=== PATIENT | female | born 1950 | race Caucasian/White ===

== ENCOUNTER 2019-01-19 05:41 | Inpatient (IN) ==
[2019-01-19] MEDS ORDERED: ROBAXIN PO ONE (06:36)
--- NOTE | 2019-01-19 06:42 | PROVIDER DOCUMENTATION ---
HPI-General Adult - General Chief Complaint: Extremity Pain Stated Complaint: leg pain Time Seen by Provider: 01/19/19 06:29 Source: patient Home Medications: Home Medication List Medication Instructions Recorded Confirmed Last Taken Type Albuterol Sulfate [Proair Hfa] 8.5 gm INHALATION DAILY 01/19/19 01/19/19 Unknown History Amlodipine [Norvasc] 10 mg PO DAILY 01/19/19 01/19/19 Unknown History Brexpiprazole [Rexulti] 2 mg PO DAILY 01/19/19 01/19/19 Unknown History Bupropion HCl [Budeprion Xl] 300 mg PO DAILY 01/19/19 01/19/19 Unknown History Dextroamphetamine/Amphetamine 30 mg PO DAILY 01/19/19 01/19/19 Unknown History [Adderall Xr 30 mg Capsule] Fenofibrate 160 mg PO DAILY 01/19/19 01/19/19 Unknown History Ferrous Sulfate 325 mg PO DAILY 01/19/19 01/19/19 Unknown History Fluoxetine [Prozac] 40 mg PO DAILY 01/19/19 01/19/19 Unknown History Gabapentin 400 mg PO DAILY 01/19/19 01/19/19 Unknown History Hydrocodone/APAP 10 mg/325 mg 1 ea PO Q6H PRN PRN 01/19/19 01/19/19 Unknown History [[place]-10] Ipratropium/Albuterol INH 1 puff INH RTQ6H 01/19/19 01/19/19 Unknown History [Combivent Respimat Inhaler] Liraglutide [Victoza] 18 mg .SEE ORDER DAILY 01/19/19 01/19/19 Unknown History Losartan [Cozaar] 50 mg PO DAILY 01/19/19 01/19/19 Unknown History Omeprazole 40 mg PO DAILY 01/19/19 01/19/19 Unknown History PRAVAstatin [Pravachol] 40 mg PO DAILY 01/19/19 01/19/19 Unknown History Potassium Chloride 10 meq PO DAILY 01/19/19 01/19/19 Unknown History Ropinirole [Requip] 0.5 mg PO HS 01/19/19 01/19/19 Unknown History Sitagliptin Phosphate [Januvia] 100 mg PO DAILY 01/19/19 01/19/19 Unknown History - History of Present Illness -Gen Adult Nature of Presenting Problems: Pt presents with left leg pain, x 3 months, pt had knee replacement on right knee that keeps dislocating, pt was told by ortho to start favoring her left leg, since she has been doing that she developed left leg pain, gets muscle s pasms, pain is sharp to cramp, no radiation, inner thigh and lower leg, pt denies f/c, holt, cp, sob, cough, ap, n/v/d. Pt is lying in bed in no acute distress. Location of Pain/Injury: reports: lower extremity (left leg) Pain Radiation: reports: no radiation Quality of Pain: reports: cramping, sharp Onset/Duration: reports: other (3 months) Timing: reports: still present Context/Activities at Onset: reports: none Modifying Factors: improves with: nothing Associated Symptoms: reports: denies symptoms Similar Symptoms Previously?: Yes Recently seen or treated by another doctor?: No Review of Systems - Adult - REVIEW OF SYSTEMS - ADULT Constitutional: reports: no symptoms reported Eyes: reports: no symptoms reported Ears, Nose, Mouth & Throat: reports: no symptoms reported Cardiovascular: reports: no symptoms reported Respiratory: reports: no symptoms reported Gastrointestinal: reports: no symptoms reported Genitourinary: reports: no symptoms reported Musculoskeletal: reports: see HPI Integumentary: reports: no symptoms reported Neurological: reports: no symptoms reported Psychiatric: reports: no symptoms reported Endocrine: reports: no symptoms reported Hematologic/Lymphatic: reports: no symptoms reported Allergic/Immunologic: reports: no symptoms reported All Other Systems: Reviewed and Negative Past History - Adult - PAST MEDICAL HISTORY-ADULT Review of Records: reports: Old Records Reviewed, Nursing Assessment Review, Medications Reviewed, Social history reviewed & non-contributory. Major Childhood Illnesses: reports: denies history Cardiovascular: reports: denies history Respiratory: reports: denies history Gastrointestinal: reports: denies history Obstetrical/Gynecological: reports: denies history Genitourinary: reports: denies history Musculoskeletal: reports: other (right knee replacement) Neurological: reports: denies history Psychiatric: reports: denies history Endocrine/Immune: reports: denies history Physical Exam-General - PHYSICAL EXAM-ADULT Initial Vital Signs Reviewed: Yes - CONSTITUTIONAL General Appearance: appears well - EYES Eyes: PERRL/EOMI - HEAD, EARS, NOSE, MOUTH & THROAT HENMT: normal ENT inspection - NECK Neck: normal inspection - RESPIRATORY Respiratory: no respiratory distress, no accessory muscle use - CARDIOVASCULAR Cardiovascular: regular rate, rhythm - GASTROINTESTINAL (ABDOMEN) Abdominal Exam: non tender, soft - LYMPHATIC Lymphatic: no adenopathy - MUSCULOSKELETAL Back Exam: normal inspection Extremity: normal range of motion, non-tender, normal gait, no calf tenderness - SKIN Integumentary: normal color - NEUROLOGIC Neurologic: financial aid manager II-XII nml as tested - PSYCHIATRIC Psych/Mental Status: normal mood/affect Progress - PLAN OF CARE/RESULTS Progress/Plan/Lab Results: Vital Signs - 8 hr 01/19/19 06:28 Temperature 98.7 F Pulse Rate 96 H Respiratory Rate 18 Blood Pressure 160/88 O2 Sat by Pulse Oximetry 98 Orders Category Date Time Status CBC WITH ELECTRONIC DIFF [HEME] Stat Lab 01/19/19 06:37 Uncollected CK TOTAL [CHEM] Stat Lab 01/19/19 06:37 Uncollected COMPREHENSIVE METABOLIC PANEL [CHEM] Stat Lab 01/19/19 06:37 Uncollected CRP [C REACTIVE PROT QUANT] [CHEM] Stat Lab 01/19/19 06:37 Uncollected SED RATE [HEME] Stat Lab 01/19/19 06:37 Uncollected Methocarbamol [Robaxin] Med 01/19/19 06:36 Once 750 mg PO NOW ONE Result Diagrams: 01/19/19 07:12 01/19/19 07:12 - REASSESSMENT Reassessment #1 Time Reassessed: 09:30 Status: unchanged (Assumed care from Dr. Walden with disposition pending labs. Leukocytosis noted. Further discussion with the patient, she has been feeling weak with productice cough. CXR pending) - XRAY 1 XRAY Study: Chest (infiltrates) Departure - Departure Date of Disposition Decision: 01/19/19 Time of Disposition Decision: 10:27 DIAGNOSIS: Pneumonia Disposition: ADMITTED INPATIENT 09 Certified Medical Emergency: Emergent Condition: Serious Referrals and Follow-Ups: Shlomo Ovalle MD [Primary Care Provider] - - Critical Care Note This patient required my direct & personal management of CC.: Yes Total Time (mins): 35 Critical Care Statement: This patient required my direct personal management to treat or rule out processes, the absence of which, could potentiallly result in sudden, clinically significant life or limb threatening deterioration. Attestation - Physician/ DUANE Attestation The physician spent face to face time with patient:: Yes Advanced Practice Provider documentation review:: Supervising physician onsite and consulted in the evaluation and care of this patient. The physician did have a face to face encounter with the patient.
[2019-01-19 07:38] LABS: BASO# 0.02 X1000 (0.0-0.2); BASO% 0.1 % (0.0-0.8); EOS# 0.03 X1000 (0.0-0.7); EOS% 0.1 % (0.0-10.0); HEMATOCRIT 35.9 % (37.0-47.0); HEMOGLOBIN 11.8 g/dL (12.0-16.0); IMM GRAN# 0.06 X1000 (0.0-0.04); IMM GRAN% 0.3 % (0.0-0.5); LYMPH# 0.66 X1000 (1.2-3.4); MCH 26.2 PG (27-31); MCHC 32.9 g/dL (33-37); MCV 79.8 FL (81-99); MONO# 1.18 X1000 (0.11-0.59); MONO% 5.4 % (1.7-9.3); MPV 10.4 FL (7.4-10.4); NEUT# 19.86 X1000 (1.4-6.5); NEUT% 91.1 % (42.2-75.2); PLT 344 X1000 (130-400); RDW 14.2 % (11.5-14.5); WBC 21.81 X1000 (4.8-10.8)
[2019-01-19 07:54] LABS: ALB/GLOB RATIO 1.1; ALBUMIN 3.8 g/dL (3.5-5.0); C REACTIVE PROT QUANT 55.44 mg/L (0.00-5.00); CALCIUM 9.2 mg/dL (8.8-10.2); CREATININE 1.5 mg/dL (0.5-0.9); POTASSIUM 4.5 mmol/L (3.5-5.1); TOTAL BILIRUBIN 0.35 mg/dL (0.20-1.00); TOTAL PROTEIN 7.4 g/dL (6.3-8.3)
[2019-01-19 08:41] LABS: SED RATE 40 mm/hr (0-20)
--- NOTE | 2019-01-19 09:45 | Diag Imaging Result Doc PS360 ---
EXAM: CHEST-2 VIEWS HISTORY: short of breath TECHNIQUE: Two views COMPARISON: None. FINDINGS: The lungs are well expanded. The heart is not enlarged. The vessels are not distended. There are posterior infiltrates on the later view. No pleural effusions. IMPRESSION: Small base infiltrates. Electronically signed by Cruz Mason 01/19/2019 9:42 AM
[2019-01-19 10:02] LABS: URINE SOURCE CLEAN CATCH
[2019-01-19 10:15] LABS: BILIRUBIN URINE NEGATIVE (NEGATIVE); BLOOD URINE SMALL (NEGATIVE); COLOR YELLOW; GLUCOSE URINE NEGATIVE (NEGATIVE); KETONE URINE NEGATIVE (NEGATIVE); LEUKOCYTES URINE LARGE (NEGATIVE); NITRITE URINE NEGATIVE (NEGATIVE); PROTEIN URINE 300 mg/dL (NEGATIVE); SP GRAVITY URINE 1.017; TURBIDITY URINE HAZY (CLEAR); UROBILINOGEN URINE NORMAL (NORMAL)
[2019-01-19 10:17] LABS: UR EPITHELIAL CELLS <10 /HPF (<10); URINE BACTERIA 4+ /HPF; URINE RBC <10 /HPF (<10); URINE WBC TNTC /HPF (<10)
[2019-01-19 10:22] LABS: INR 1.04; PROTIME 14.5 Seconds (11.0-16.0)
[2019-01-19] MEDS ORDERED: ZITHROMAX 500 MG/NS 500 MG/250 ML IVPB IV ONE (10:24)
[2019-01-19] MEDS ORDERED: ROCEPHIN 2 GM in NS 50 ML IV ONE (10:24)
[2019-01-19] MEDS ORDERED: NS 1,000 ML IV ONE (10:52)
[2019-01-19] MEDS ORDERED: NS 1,000 ML ONE (10:55)
[2019-01-19] MEDS ORDERED: VANCOMYCIN 1 GM/NS 1 GM/250 ML IVPB IV ONE (10:55)
[2019-01-19] MEDS ORDERED: ROCEPHIN 1 GM in NS 50 ML IV SCH (11:15)
[2019-01-19] MEDS ORDERED: VENTOLIN HFA INH PRN (14:32)
--- NOTE | 2019-01-19 15:40 | HISTORY AND PHYSICAL ---
CHIEF COMPLAINT: Left knee pain. HISTORY OF PRESENT ILLNESS: This is a morbidly obese 68-year-old female who presents to the emergency room complaining of 3 months of left knee and leg pain. The patient states that she is status post a right knee replacement. She states "my new right knee keeps dislocating so my orthopedic doctor told me to start putting my weight on my left leg instead of my right," she describes this pain as a cramping type pain is intermittent, she can find no alleviating factors. walking and weight bearing are exacerbating factors. No accompanying factors. Labs were drawn. She was found to have white count of 21, chest x-ray revealed bibasilar pneumonia. Blood cultures were drawn. She was given antibiotics of Rocephin and azithromycin and she is being admitted for further evaluation and treatment. PAST MEDICAL HISTORY: Hypertension, COPD, anemia of chronic disease, diabetes mellitus, chronic kidney disease. PAST SURGICAL HISTORY: Cholecystectomy, , tubal ligation, tunneled catheter placed and removed. SOCIAL HISTORY: She smoked. She quit a few years ago. She denies alcohol or illicit drug use. ALLERGIES: They only had Bactrim on file. We did review the antibiotics that she had being given in the last year and a half. She had been given Levaquin, Cipro, clindamycin, gentamicin IM. She states that she feels the Levaquin, Cipro and clindamycin cause blisters on her hands. She did remember taking Zithromax and a Z-Rakesh and doing fine. She received Keflex in July 2018, twice in August 2018 and once in September 2018, she stated that she took this without difficulty. HOME MEDICATIONS: A list will be obtained by the nursing staff and once verified will review and restarted as appropriate. REVIEW OF SYSTEMS: Discussed with the patient with pertinent positives stated in the HPI. She denied any syncope, any dizziness, any chest pain or palpitations, any nausea, vomiting, diarrhea, constipation, any black or bloody vomitus or stools, any hematuria, dysuria, frequency, urgency. PHYSICAL EXAMINATION: GENERAL: This is a 68-year-old female who is lying in the bed in no distress. VITAL SIGNS: Blood pressure is 145/86 with heart rate of 86, respirations are 20, temperature is 98.9 degrees with O2 saturations that are 86 to 87 on room air, 91 to 93 on 2 L nasal cannula. HEENT: Pupils are equal, round, react to light. EOMs are intact. Sclerae anicteric. Head is normocephalic, atraumatic. Mucous membranes are moist. NECK: Supple. Trachea midline. CARDIOVASCULAR: Regular rate and rhythm. S1 and S2 appreciated. Calves are nontender bilateral with peripheral pulses palpable. PULMONARY: Breath sounds are diminished in the bases. Chest rises and fall symmetric respiration. Chest wall is nontender to palpation. GASTROINTESTINAL: Abdomen large, soft, nontender, nondistended with bowel sounds in all 4 quadrants. NEUROLOGIC: She is alert and oriented x3. SKIN: Warm and dry. LABS: WBC is 21 with hemoglobin 11.8, hematocrit 35.9, platelets of 344,000. INR is 1.04. Sodium 135, potassium 4.5, BUN 17, creatinine 1.5 with a glucose of 248. Troponin is negative. Her lactate is 1.1. Urinalysis reveals a small amount of blood, large leukocytes and large white blood cells with 4+ bacteria. Chest x-ray revealed small basilar infiltrates. ASSESSMENT AND PLAN: 1. Bibasilar pneumonia. Blood cultures were drawn in the emergency room. We will use antibiotic coverage of azithromycin and Rocephin. Start incentive spirometer. 2. Hypoxemia. Will give supplemental oxygen and monitor saturations. 3. Diabetes mellitus. She will be placed on pattern blood glucose with sliding scale insulin. 4. Chronic kidney disease. Creatinine is 1.5. She did state that in the past she had some chronic kidney disease and she saw a "kidney doctor but she cannot remember where he was or if he was was in [place] or in [place]. .She states that she almost went on dialysis but "I got up to 18 so I didnt have to do it." She does not know what level was 18. Will trend her labs and renal dose medications. 5. Leukocytosis most likely secondary to pneumonia. 6. Influenza A positive. Will start Tamiflu. 7. Possible urinary tract infection. Will continue antibiotics as stated above and once urine culture other antibiotics will be culture driven. 8. Left knee pain. We will continue her [place] 10 as from home. 9. For DVT prophylaxis will use Lovenox at a renal dose and for GI prophylaxis PPI. Further treatments pending hospital course. Dictated by FREDO Pritchett for Ronni Nevarez MD cc: FREDO Pritchett MD I agree with most components of history, physical, assessment and plan. A separate addendum has been dictated. MTDD
[2019-01-19] MEDS ORDERED: ZITHROMAX PO SCH (15:45)
[2019-01-19] MEDS ORDERED: NS 1,000 ML IV SCH (16:00)
--- NOTE | 2019-01-19 16:16 | Diag Imaging Result Doc PS360 ---
EXAM: KNEE 1-2 VIEWS-LEFT HISTORY: Eval for fracture, osteoarthritis TECHNIQUE: Left knee, two views COMPARISON: None. FINDINGS: Prominent joint space narrowing. There are large bone spurs arising from the femoral condyles and tibial plateau as well as the patella. No fracture or dislocation. Mild atherosclerosis. IMPRESSION: Severe arthritis Electronically signed by Cruz Mason 01/19/2019 4:13 PM
--- NOTE | 2019-01-19 16:19 | HISTORY AND PHYSICAL ---
ADDENDUM: I agree with most components of history and physical. In brief Ms. Schumacher is 68 years old lady with past medical history of tobacco abuse quit about 5 years ago, COPD, essential hypertension, chronic anemia, chronic kidney disease, [id number] diabetes mellitus, who comes in with chief complaints of shortness of breath since about 1 week with increased cough with greenish expectoration since last about 5 days. The patient also had left knee pain which was progressively getting worse over last 1 month. The patient is a poor historian. While in the emergency room she was found to have leukocytosis, hypoxia and chest x- ray suggestive of bibasilar pneumonia so the hospitalist team was consulted. Apparently patient did not receive antibiotics in the emergency room since she was listed to be allergic to multiple medications. At the time of my evaluation patient states she never had anaphylactic reaction to penicillin and she had previously tolerated Keflex well. She currently denies any chest pain but is complaining of shortness of breath with cough and expectoration. We discussed about clinical exam finding, labs, imaging, assessment and plan, answered all of her questions. Her code status is full. She is denying any fevers or chills however she states she has always been feeling chilly. Currently vitals suggest temperature of 99.1 degrees, pulse of 88 per minute, blood pressure of 137/81, saturating 92% on 2 L nasal cannula. PHYSICAL EXAMINATION: Morbidly obese not in any acute distress. Oral cavity is moist. Air entry bilaterally equal. No wheeze or rhonchi. She does have bronchial breath sound on right infrascapular region. S1, S2 normal. No murmur, rub, or gallop. Abdomen is obese, soft, nontender. She has mild bilateral lower extremity edema. LABS: Suggestive of leukocytosis, microcytic anemia, normal platelet count, hyponatremia, kidney dysfunction, suspected chronic kidney disease stage 3. Microbiology, influenza screen was positive for influenza type A. ASSESSMENT AND PLAN: 1. Acute hypoxic respiratory failure. 2. Acute chronic obstructive pulmonary disease exacerbation. 3. Bilateral lower lobe pneumonia leading to sepsis. 4. Left knee pain with history of right knee arthroplasty. 5. Influenza type A. 6. Tzj-mebvouv-qjvzeupsg diabetes mellitus, chronic kidney disease. 7. Chronic anemia. PLAN: I will start patient on intravenous cefepime and linezolid to broadly cover for bilateral pneumonia, acute chronic obstructive pulmonary disease exacerbation, since she is not wheezing I am holding off on adding steroids. I will get urine Legionella and streptococcal antigen, sputum culture and sensitivity as well as blood culture. I will also get left knee x-ray. I will start patient on Tamiflu renally dosed. Plan of care is discussed with the patient. All of her questions have been answered. cc: Ronni Nevarez MD
[2019-01-19] MEDS: HUMALOG SUBQ SCH ×2 (16:35→22:16)
[2019-01-19] MEDS: NON-FORMULARY MED PO SCH ×2 (17:45→22:16)
[2019-01-19] MEDS: MAXIPIME 1 GM in NS 50 ML IV SCH (17:45)
[2019-01-19] MEDS: ZYVOX PO SCH ×2 (17:45→22:16)
[2019-01-19] MEDS: NORVASC PO SCH (17:46)
[2019-01-19] MEDS: REQUIP PO SCH (22:14)
[2019-01-19] MEDS: DUONEB (A & A) INH PRN (22:38)
[2019-01-20] MEDS: MAXIPIME 1 GM in NS 50 ML IV SCH ×2 (04:32→18:58)
[2019-01-20] MEDS: NORCO-10 PO PRN ×2 (04:32→12:33)
[2019-01-20] MEDS: HUMALOG SUBQ SCH ×4 (06:05→21:48)
[2019-01-20] MEDS: PRILOSEC PO SCH (06:37)
[2019-01-20] MEDS: LOVENOX SUBQ SCH (06:37)
[2019-01-20 07:12] LABS: BASO# 0.03 X1000 (0.0-0.2); BASO% 0.2 % (0.0-0.8); EOS# 0.03 X1000 (0.0-0.7); EOS% 0.2 % (0.0-10.0); HEMATOCRIT 33.3 % (37.0-47.0); HEMOGLOBIN 10.8 g/dL (12.0-16.0); IMM GRAN# 0.04 X1000 (0.0-0.04); IMM GRAN% 0.2 % (0.0-0.5); LYMPH# 1.46 X1000 (1.2-3.4); LYMPH% 8.6 % (20.5-51.1); MCHC 32.4 g/dL (33-37); MCV 80.2 FL (81-99); MONO# 1.03 X1000 (0.11-0.59); MPV 10.3 FL (7.4-10.4); NEUT# 14.47 X1000 (1.4-6.5); NEUT% 84.8 % (42.2-75.2); PLT 311 X1000 (130-400); RBC 4.15 XMIL (4.2-5.4); RDW 14.2 % (11.5-14.5); WBC 17.06 X1000 (4.8-10.8)
[2019-01-20 07:26] LABS: ALBUMIN 3.4 g/dL (3.5-5.0); CREATININE 1.3 mg/dL (0.5-0.9); POTASSIUM 3.8 mmol/L (3.5-5.1); TOTAL BILIRUBIN 0.43 mg/dL (0.20-1.00); TOTAL PROTEIN 6.8 g/dL (6.3-8.3)
[2019-01-20 08:25] LABS: IRON SATURATION 6 %; TIBC 239 ug/dL; TOTAL IRON 14 ug/dL (49-151); UNBOUND IRON 225 ug/dL (112-346)
[2019-01-20] MEDS ORDERED: PROZAC PO SCH (09:00)
[2019-01-20] MEDS ORDERED: ZITHROMAX PO SCH (09:00)
[2019-01-20] MEDS ORDERED: ADDERALL XR PO SCH (09:00)
[2019-01-20] MEDS: DUONEB (A & A) INH PRN ×3 (09:50→22:00)
[2019-01-20] MEDS ORDERED: ROCEPHIN 1 GM in NS 50 ML IV SCH (11:00)
[2019-01-20] MEDS: NEURONTIN PO SCH (11:12)
[2019-01-20] MEDS: PRAVACHOL PO SCH (11:12)
[2019-01-20] MEDS: FERROUS SULFATE PO SCH (11:13)
[2019-01-20] MEDS: LOFIBRA PO SCH (11:13)
[2019-01-20] MEDS: ZYVOX PO SCH ×2 (11:13→21:47)
[2019-01-20] MEDS: NORVASC PO SCH (11:13)
[2019-01-20] MEDS: WELLBUTRIN XL PO SCH (11:13)
--- NOTE | 2019-01-20 12:42 | PROGRESS NOTE ---
DATE: 01/20/2019 INTERVAL HISTORY: No acute event overnight. In the morning, she states she is feeling much better than she did yesterday. She denies any more chest pain. She is still feeling a little short of breath but it is better than she did yesterday. We discussed about exam findings, labs, and answered all of her questions. VITAL SIGNS: Currently vitals suggest temperature 97.6 degrees, pulse 83, respiratory rate 18, blood pressure 142/74, saturating 94% on 3 L nasal cannula. PHYSICAL EXAMINATION: She is in mild distress because of shortness of breath. Oral cavity is moist. Lungs: Air entry bilaterally equal. No wheeze. No rhonchi or crackles. She does have some upper respiratory tract sound transmitted on lung examination. She does have bronchial breath sounds in the right infrascapular region. Cardiovascular: S1 and S2 are normal. No murmur, rub, or gallop. Abdomen: Obese, soft, nontender. Mild bilateral lower extremities edema. She is alert and oriented x3. LABS: Suggestive of persistent leukocytosis, microcytic anemia, normal platelet count, hyponatremia, low bicarbonate, improving acute kidney injury. MICROBIOLOGY: Urine culture and sputum culture are in lab. IMAGING: Knee x-ray yesterday had severe arthritis. EKG had normal sinus rhythm. ASSESSMENT AND PLAN: 1. Acute hypoxic respiratory failure due to bilateral lower lobe pneumonia and sepsis due to acute chronic obstructive pulmonary disease exacerbation with influenza A. Continue patient on albuterol-ipratropium nebulization, intravenous cefepime, and oral linezolid, with Tamiflu. Continue oxygenation to maintain saturation more than 90%. Follow up blood culture and sputum culture data, as well as urine culture data, and change antibiotics accordingly. 2. MADELAINE on chronic kidney disease stage 3: Improving. Monitor BMP. 2. Others. Continue amlodipine for essential hypertension. I will start her on as needed labetalol; continue fenofibrate and pravastatin for hyperlipidemia; ropinirole for restless legs syndrome; insulin sliding scale for lzr-gnixauu-uvibsohpc diabetes mellitus; and gabapentin for peripheral neuropathy; ferrous sulfate for iron deficiency anemia. 3. Disposition. Patient remains inside the hospital for management of flu and acute respiratory failure. Plan of care discussed with her. All of her questions have been answered. cc: MD SHAWANDA Angulo
[2019-01-20] MEDS: NON-FORMULARY MED PO SCH ×2 (13:19→21:47)
[2019-01-20] MEDS: REQUIP PO SCH (21:48)
[2019-01-21] MEDS: MAXIPIME 1 GM in NS 50 ML IV SCH ×2 (05:40→16:56)
[2019-01-21] MEDS: LOVENOX SUBQ SCH (05:40)
[2019-01-21] MEDS: PRILOSEC PO SCH ×2 (05:41→06:12)
[2019-01-21] MEDS: HUMALOG SUBQ SCH ×5 (05:41→21:14)
[2019-01-21 07:10] LABS: BASO# 0.02 X1000 (0.0-0.2); BASO% 0.2 % (0.0-0.8); EOS# 0.23 X1000 (0.0-0.7); EOS% 1.8 % (0.0-10.0); HEMOGLOBIN 10.7 g/dL (12.0-16.0); IMM GRAN# 0.05 X1000 (0.0-0.04); IMM GRAN% 0.4 % (0.0-0.5); LYMPH# 1.17 X1000 (1.2-3.4); LYMPH% 9.1 % (20.5-51.1); MCH 26.1 PG (27-31); MCHC 32.4 g/dL (33-37); MCV 80.5 FL (81-99); MONO# 0.94 X1000 (0.11-0.59); MONO% 7.3 % (1.7-9.3); MPV 10.5 FL (7.4-10.4); NEUT# 10.41 X1000 (1.4-6.5); NEUT% 81.2 % (42.2-75.2); PLT 306 X1000 (130-400); RDW 14.4 % (11.5-14.5); WBC 12.82 X1000 (4.8-10.8)
[2019-01-21 07:31] LABS: CALCIUM 9.2 mg/dL (8.8-10.2); CREATININE 1.3 mg/dL (0.5-0.9); MAGNESIUM 1.9 mg/dL (1.5-2.7); PHOSPHORUS 2.9 mg/dL (2.7-4.5)
--- NOTE | 2019-01-21 07:34 | EKG Report ---
Test Performed on : 01/19/2019 5:18:08 PM Test Reason : Shortness of breath Blood Pressure : / mmHG Vent. Rate : 087 BPM Atrial Rate : 087 BPM P-R Int : 192 ms QRS Dur : 080 ms QT Int : 392 ms P-R-T Axes : 048 021 022 degrees QTc Int : 471 ms Normal sinus rhythm. Septal infarct , age undetermined Abnormal ECG No previous ECGs available Confirmed by Bruce DELUCA, Lior Dickens ([id number]) on 01/21/2019 7:58:50 AM
[2019-01-21] MEDS: DUONEB (A & A) INH PRN (09:59)
[2019-01-21] MEDS: FERROUS SULFATE PO SCH (10:54)
[2019-01-21] MEDS: ZYVOX PO SCH ×2 (10:54→21:13)
[2019-01-21] MEDS: NEURONTIN PO SCH (10:54)
[2019-01-21] MEDS: WELLBUTRIN XL PO SCH (10:55)
[2019-01-21] MEDS: LOFIBRA PO SCH (10:55)
[2019-01-21] MEDS: NORVASC PO SCH (10:55)
[2019-01-21] MEDS: PRAVACHOL PO SCH (10:55)
[2019-01-21] MEDS: NON-FORMULARY MED PO SCH ×2 (10:58→21:13)
[2019-01-21] MEDS: NORCO-10 PO PRN ×2 (11:05→17:13)
--- NOTE | 2019-01-21 13:40 | PROGRESS NOTE ---
DATE: 01/21/2019 INTERVAL HISTORY: No acute event overnight. SUBJECTIVE: Patient is feeling significantly better. She has sputum which was collected. EKG had suggested normal sinus rhythm. The patient would like to get home physical therapy rather than going to rehab. We discussed about setting up and outpatient lung doctor appointment, and I answered all of her questions. Currently, patient denies any chest pain. Her shortness of breath is significantly better. She is still having cough with expectoration. She is waiting for physical therapy to come by and evaluate her. We discussed about exam findings, lab tests, and medical management and plan. I allowed her to ask questions and answered all of them. Currently, temperature 97.4 degrees, pulse 77, respiratory rate 18, blood pressure 138/83, saturating 94% on 2 to 3 L nasal cannula. PHYSICAL EXAMINATION: Morbidly obese. Not in any acute distress. Oral cavity is moist. Lungs: Air entry bilaterally equal. No wheeze, rhonchi, or crackles. She does have some upper respiratory secretions. She has inspiratory crackles on the left inframammary region. S1 and S2 are normal. No murmur or gallop. Abdomen is obese, soft, nontender. No lower extremity edema. She is alert and oriented x3. She has diffuse osteoarthritis with bony spurs affecting the left knee joint. LABS: Suggestive of improving leukocytosis, microcytic anemia, normal platelet count, iron deficiency, resolution of acute kidney injury. MICROBIOLOGY: Urine culture is growing Escherichia coli and she does mention that she has been having increased urinary frequency. Sputum culture final is pending. ASSESSMENT AND PLAN: 1. Acute hypoxic respiratory failure and sepsis due to bilateral lower lobe pneumonia, influenza type A, acute chronic obstructive pulmonary disease exacerbation. Continue albuterol- ipratropium nebulization, intravenous cefepime, oral linezolid, with Tamiflu. Continue oxygenation to maintain saturation more than 90%. I will also have home oxygen evaluation. Follow up final sputum culture results. 2. Acute cystitis due to Escherichia coli. The patient is on intravenous cefepime, which I will continue for her chronic obstructive pulmonary disease exacerbation as well. 3. Acute kidney injury on chronic kidney disease stage 3, improving. Monitor BMP. 4. Others. Continue amlodipine for essential hypertension and her blood pressure has been reasonably well controlled. I will consider adding labetalol if her blood pressure goes high; continue fenofibrate and pravastatin for hyperlipidemia; ropinirole for restless legs syndrome; sliding scale insulin for insulin-dependent diabetes mellitus; gabapentin for peripheral neuropathy; ferrous sulfate for iron deficiency anemia. 5. Disposition. We will continue to monitor the patient inside the hospital for another 24 to 48 hours as I am awaiting final sputum culture results. Based on that, I am going to change her antibiotics to oral and discharge her home. I will also have home oxygen evaluation and home physical therapy set up. She should follow up with lung doctor as an outpatient. Plan of care discussed with her. All of her questions have been answered. The patient's was at bedside and his questions have also been answered. cc: Ronni Nevarez MD
[2019-01-21] MEDS: REQUIP PO SCH (21:13)
[2019-01-22] MEDS: MAXIPIME 1 GM in NS 50 ML IV SCH ×2 (04:49→16:49)
[2019-01-22] MEDS: NORCO-10 PO PRN ×3 (04:49→21:08)
[2019-01-22] MEDS: LOVENOX SUBQ SCH (05:44)
[2019-01-22] MEDS: PRILOSEC PO SCH ×2 (05:45→06:18)
[2019-01-22] MEDS: HUMALOG SUBQ SCH ×5 (05:45→21:07)
[2019-01-22] MEDS: NON-FORMULARY MED PO SCH ×2 (09:20→22:01)
[2019-01-22] MEDS: LOFIBRA PO SCH (09:21)
[2019-01-22] MEDS: WELLBUTRIN XL PO SCH (09:21)
[2019-01-22] MEDS: ZYVOX PO SCH ×2 (09:21→21:08)
[2019-01-22] MEDS: FERROUS SULFATE PO SCH (09:21)
[2019-01-22] MEDS: PRAVACHOL PO SCH (09:21)
[2019-01-22] MEDS: NORVASC PO SCH (09:21)
[2019-01-22] MEDS: NEURONTIN PO SCH (09:21)
[2019-01-22] MEDS ORDERED: LASIX IV ONE (14:17)
[2019-01-22] MEDS: PREDNISONE PO SCH (14:22)
--- NOTE | 2019-01-22 15:20 | PROGRESS NOTE ---
DATE: 01/22/2019 INTERVAL HISTORY: No acute events. The patient says that someone checked her oxygen level yesterday and it was 88%. She states she is feeling worse today in terms of her shortness of breath that she is not able to cough up something and I discussed with her about starting her on mucolytics and I also answered her questions. We again talked about rehab however, she refuses to go to rehab and she wants to rather get home physical therapy. I discussed about need for lung doctor followup as an outpatient. I also discussed about quitting smoking as well as left- sided knee orthopedic surgery. VITALS: Currently temperature 98.4 degrees, pulse 77, respiratory rate 18, blood pressure 135/65, saturating 94% on 2 L nasal cannula. There was 89% recorded on presentation however since last 24 to 48 hours there is no recorded of low SpO2. PHYSICAL EXAMINATION: Morbidly obese not in any acute distress. Air entry bilaterally equal. No rhonchi or crackles. She does have occasional wheeze but this is more likely respiratory secretions. She does have inspiratory crackles left inframammary region. S1-S2 are normal. No murmur, rub, or gallop. Abdomen is obese, soft, nontender. No lower extremity edema. She is alert, oriented x3. She has severe osteoarthritis and bony spurs affecting left knee joint. LABS: No CBC or BMP today. Her blood glucose were largely in acceptable range. Microbiology, urine Legionella and streptococcal antigens are negative. Urine culture is growing E coli which is sensitive to cefazolin. IMAGING: No new imaging data available today. Chest x-ray on admission however did have small basal infiltrate. ASSESSMENT AND PLAN: 1. Acute hypoxic respiratory failure and sepsis due to bilateral lower lobe pneumonia, influenza type A and acute chronic obstructive pulmonary disease exacerbation. Continue albuterol ipratropium nebulization, intravenous cefepime and oral linezolid with Tamiflu. I am going to give her a dose of Lasix. Continue oxygenation to maintain saturation more than 90%. Home oxygen evaluation has been ordered. Sputum culture so far has not shown any growth. 2. Acute cystitis due to Escherichia coli, patient is on intravenous cefepime. 3. Acute kidney injury on chronic kidney disease stage 3 improved. Monitor BMP tomorrow. 4. Others. Continue amlodipine for essential hypertension which is well controlled now, fenofibrate and pravastatin for hyperlipidemia, ropinirole for restless legs syndrome, sliding scale insulin for insulin-dependent diabetes mellitus, gabapentin for peripheral neuropathy, ferrous sulfate for iron deficiency anemia and add prednisone for persistent shortness of breath. DISPOSITION: Since patient is complaining of worsening shortness of breath and not being able to expectorate and chest congestion I am going to order acetylcysteine and steroid to her regimen. Will also give her dose of Lasix and if she continues to do better or she starts feeling better my plan is to discharge her home with home physical therapy with home oxygen potentially. Plan of care were discussed with patient and . All of the questions have been answered. cc: Ronni Nevarez MD MTDD
[2019-01-22] MEDS: MUCOMYST 20% INH SCH ×2 (18:01→19:37)
[2019-01-22] MEDS: DUONEB (A & A) INH PRN (19:38)
[2019-01-22] MEDS: REQUIP PO SCH (21:08)
[2019-01-23] MEDS: PRILOSEC PO SCH (06:30)
[2019-01-23] MEDS: MAXIPIME 1 GM in NS 50 ML IV SCH ×2 (06:30→16:30)
[2019-01-23] MEDS: HUMALOG SUBQ SCH ×3 (06:31→17:30)
[2019-01-23 06:56] LABS: BASO# 0.02 X1000 (0.0-0.2); BASO% 0.2 % (0.0-0.8); EOS# 0.15 X1000 (0.0-0.7); EOS% 1.7 % (0.0-10.0); HEMATOCRIT 34.9 % (37.0-47.0); HEMOGLOBIN 11.1 g/dL (12.0-16.0); IMM GRAN# 0.13 X1000 (0.0-0.04); IMM GRAN% 1.4 % (0.0-0.5); LYMPH# 1.45 X1000 (1.2-3.4); MCH 25.6 PG (27-31); MCHC 31.8 g/dL (33-37); MCV 80.4 FL (81-99); MONO# 0.72 X1000 (0.11-0.59); MPV 10.3 FL (7.4-10.4); NEUT# 6.58 X1000 (1.4-6.5); NEUT% 72.7 % (42.2-75.2); PLT 376 X1000 (130-400); RBC 4.34 XMIL (4.2-5.4); RDW 14.2 % (11.5-14.5); WBC 9.05 X1000 (4.8-10.8)
[2019-01-23] MEDS: MUCOMYST 20% INH SCH (07:16)
[2019-01-23] MEDS: DUONEB (A & A) INH PRN (07:16)
[2019-01-23 07:37] LABS: CALCIUM 9.6 mg/dL (8.8-10.2); CREATININE 1.1 mg/dL (0.5-0.9); PHOSPHORUS 2.7 mg/dL (2.7-4.5); POTASSIUM 4.1 mmol/L (3.5-5.1)
[2019-01-23] MEDS: NORCO-10 PO PRN ×2 (08:49→15:32)
[2019-01-23] MEDS: NORVASC PO SCH (09:45)
[2019-01-23] MEDS: ZYVOX PO SCH (09:45)
[2019-01-23] MEDS: PRAVACHOL PO SCH (09:45)
[2019-01-23] MEDS: NEURONTIN PO SCH (09:45)
[2019-01-23] MEDS: FERROUS SULFATE PO SCH (09:45)
[2019-01-23] MEDS: PREDNISONE PO SCH (09:45)
[2019-01-23] MEDS: WELLBUTRIN XL PO SCH (09:45)
[2019-01-23] MEDS: LOFIBRA PO SCH (09:45)
[2019-01-23] MEDS: NON-FORMULARY MED PO SCH (09:46)
[2019-01-23 11:53] VITALS: BP 124/94
--- NOTE | 2019-01-23 22:31 | DISCHARGE SUMMARY ---
ADMISSION DATE: 01/19/2019 DISCHARGE DATE: 01/23/2019 DISCHARGE DISPOSITION: Home with home physical therapy and home oxygen. DISCHARGE CONDITION: Stable. The patient is alert and oriented x3. She is able to walk using oxygen for about 40 feet. She has refused to go to rehab. DISCHARGE DIAGNOSES: 1. Acute hypoxic respiratory failure. 2. Sepsis. 3. Bilateral lower lobe pneumonia. 4. Influenza type A. 5. Acute chronic obstructive pulmonary disease exacerbation. 6. Acute cystitis due to Escherichia coli. 7. Acute kidney injury on chronic kidney disease stage 3. OTHER DIAGNOSES: 1. History of morbid obesity. 2. History of chronic obstructive pulmonary disease. 3. History of bilateral knee osteoarthritis, status post right knee arthroplasty, pending left knee surgery. 4. History of [id number]-fvvclekia diabetes mellitus. 5. History of chronic anemia. 6. History of anxiety and depression. 7. History of restless legs syndrome. 8. History of hyperlipidemia. DISCHARGE MEDICATIONS: Adderall extended-release 30 mg capsule daily, bupropion 300 mg daily, Combivent Respimat inhaler 1 puff every 6 hours, fenofibrate 160 mg daily, ferrous sulfate 325 mg daily, gabapentin 400 mg daily, sitagliptin phosphate 100 mg daily, [place] 10 mg one q.6 hours as needed for pain, amlodipine 10 mg daily, omeprazole 40 mg daily, potassium chloride 10 mEq daily, pravastatin 40 mg daily, albuterol 8.5 g inhalation daily, fluoxetine 40 mg daily, ropinirole 0.5 mg at nighttime, brexpiprazole 2 mg daily, liraglutide 80 mg injector daily, cefuroxime 500 mg b.i.d. and 6 tablets have been prescribed, prednisone 40 mg daily for 3 days, omeprazole 40 mg daily, oseltamivir 30 mg b.i.d. and 2 capsules have been prescribed. PHYSICAL EXAMINATION: Vital signs at the time of discharge: Temperature 97.2 degrees, pulse 78, respiratory rate of 18, blood pressure of 124/94, saturating 94% on 2 L nasal cannula. On physical examination, morbidly obese, not in any acute distress. Oral cavity is moist. Air entry bilaterally equal. No wheeze, rhonchi or crackles. S1, S2 normal. No murmur, rub or gallop. Abdomen is obese, soft, nontender. No lower extremity edema. She is alert and oriented x3. She has severe osteoarthritis and bony spurs affecting the left knee joint. LABORATORY DATA: Significant labs during hospital admission: On admission her WBC count was 21,000 which had decreased to 9000 at the time of discharge. She had microcytic anemia with hemoglobin of 11.1, platelet count of 376,000. On admission she had acute kidney injury with GFR of 35. On discharge her GFR had increased to 50. She does have prior history of chronic kidney disease stage 3. Her urinalysis had large leukocytes. Urine antigen for legionella and streptococcus were negative. Microbiology: Sputum culture was no growth to date. E. coli was grown in urine culture, which was sensitive to cefazolin. Other microbiological data: Her flu screen was positive for influenza type A. Blood culture did not have any growth. DIAGNOSTIC DATA: Significant imaging during hospital admission: Chest x-ray on admission had small basal infiltrate. Knee x-ray of the left had severe arthritis. HOSPITAL COURSE: Ms. Schumacher is a 68-year-old lady with past medical history of chronic kidney disease stage 3 and COPD; however, she had quit smoking 4 years prior to presentation. Before that she had 1 to 2 packs per day smoking history since her young age. She came in with chief complaints of 1-week history of increased cough with greenish expectoration and shortness of breath. She was found to have bilateral basal infiltrate and influenza type A. She was admitted. She was treated with intravenous fluids for MADELAINE, and nebulization, intravenous antibiotics, Tamiflu and steroids for acute COPD exacerbation, pneumonia and UTI. During hospital admission, her MADELAINE improved. Her shortness of breath had also improved. Her COPD appears to be advanced, and she did have a drop in SpO2 on room air, so home oxygen was planned. At the time of discharge she refused to go to rehab, so home PT was arranged. At the time of discharge, the patient was provided detailed discharge instructions about completing antibiotics course, following up with lung doctor for which I have requested nursing team to schedule an appointment, and following up with her regular doctor for medical reconciliation. More than 30 minutes were spent in discharging this patient. All of her questions been answered. cc: Ronni Nevarez MD
== END 2019-01-23 18:54 | disposition home health service (06) | DRG 871 ==
LOC: SUPCPDRO → ED 05:41 → 3N 11:18
PROVIDERS: ATTEND Internal Medicine
CPT/HCPCS: 71020; 71046; 73560; 80048; 80053; 81001; 82550; 82728; 82948; 83540; 83550; 83605; 83735; 84100; 84484; 85025; 85610; 85651; 85730; 86140; 87040; 87070; 87077; 87088; 87186; 87205; 87275; 87276; 87449; 87804; 87899; 89220; 93005; 93010; 94640; 94761; 94799; 97110; 97163; 97530; 99285; A9270; J0456; J0692; J0696; J1650; J1815; J1940; J7030; J7506; J7512; XXXXX